=== PATIENT | female | born 1940 | race American Indian/Alaskan Native ===

== ENCOUNTER 2017-08-09 07:22 | Day surgery (SDC) | payer MEDICARE, OTHER ==
[2015-11-21 09:55] VITALS: BMI 36.1
--- NOTE | 2017-08-09 08:43 | CP.SDSHP ---
Same Day Surgery H & P - History Proposed Procedure: Colonoscopy Pre-Op Diagnosis: Personal history of colon polyps - Previous Medical/Surgical History Cardiac: Hypertension Comments: Hyperlipidemia, arthritis Previous Surgical History: Ectopic , hysterectomy, PPM, carpal tunnel release - Allergies Allergies: Allergies Penicillins Allergy (Intermediate, Verified 11/21/15 09:55) RASH - Current Medications Current Medications: See reconciliation sheet - Physical Exam General Appearance: WD WN female in NAD Vital Signs: Vital Signs 08/09/17 07:50 Temperature 97.3 F L Pulse Rate 71 Respiratory 19 Rate Blood Pressure 138/69 O2 Sat by Pulse 98 Oximetry Mental Status: Alert & Oriented x3 Neuro: WNL Heart: WNL Lungs: WNL GI: WNL - {Optional Preform as Required} Abdomen: WNL - Impression Impression: Personal history of colon polyps Pt. Evaluated Today:Candidate for Anesthesia & Procedure: Yes - Date & Time Date: 08/09/17 Time: 08:43 Short Stay Discharge - Short Stay Discharge Admitting Diagnosis/Reason for Visit: PERSONAL HISTORY OF COLONIC POLYPS Disposition: HOME/ ROUTINE
[2017-08-09] MEDS ORDERED: Propofol 10 mg/ml Inj (20 ML) ONE (08:52)
[2017-08-09] MEDS ORDERED: Lidocaine Hydrochloride 5 ML INJ ONE (08:52)
[2017-08-09] MEDS ORDERED: Etomidate 20 mg/10ml Inj IV ONE (08:53)
[2017-08-09] MEDS ORDERED: ePHEDrine 50 mg/ml Inj ONE (08:56)
[2017-08-09] MEDS ORDERED: Lactated Ringer's 1,000 ML IV SCH (09:15)
[2017-08-09 09:31] VITALS: TEMP 97; O2SAT 100
[2017-08-09 09:41] VITALS: PULSE 60; RESP 13
[2017-08-09 10:23] VITALS: BP 144/63
== END 2017-08-09 10:22 | disposition home or self-care (01) ==
LOC: C.ENDO 07:22
PROVIDERS: ATTEND Internal Medicine Gastroenterology
DX: Z12.11 Encounter for screening for malignant neoplasm of colon (principal); Z86.010 Personal history of colon polyps; I10 Essential (primary) hypertension; M19.90 Unspecified osteoarthritis, unspecified site; E78.5 Hyperlipidemia, unspecified; Z95.0 Presence of cardiac pacemaker; K64.8 Other hemorrhoids; K57.30 Diverticulosis of large intestine without perforation or abscess without bleeding; D12.5 Benign neoplasm of sigmoid colon; Z88.0 Allergy status to penicillin
CPT/HCPCS: 45380; 88305; J2704; J7120

== ENCOUNTER 2018-07-14 10:43 | Outpatient (CLI) | payer MEDICARE, OTHER | END 2018-07-14 10:44 | disposition home or self-care (01) | LOC: C.RADIC 10:43 ==

== ENCOUNTER 2018-08-03 11:27 | Outpatient (CLI) | payer MEDICARE, OTHER | END 2018-08-03 11:28 | disposition home or self-care (01) | LOC: C.RADIC 11:27 | DX: M25.551 Pain in right hip (principal) ==